=== PATIENT | female | born 1975 | race Caucasian/White ===

== ENCOUNTER 2017-02-22 19:49 | Emergency (ER) | payer OTHER ==
[~2017-02-22] VITALS: Ht 172.7 cm; Wt 70.9 kg
[2017-02-22 20:06] VITALS: BP 141/99
== END 2017-02-22 21:50 | disposition left against medical advice (07) ==
LOC: EME 19:49
DX: R55 Syncope and collapse (principal); Z53.21 Procedure and treatment not carried out due to patient leaving prior to being seen by health care provider
CPT/HCPCS: 71020; 80048; 85027

== ENCOUNTER 2017-03-28 10:35 | Emergency (ER) | payer OTHER ==
[~2017-03-28] VITALS: Ht 172.7 cm; Wt 61.0 kg
[2017-03-28 12:02] LABS: EOSINOPHIL (%) 1.1 % (0-5); EOSINOPHIL COUNT 0.1 K/uL (0-0.3); HEMATOCRIT 39.1 % (36.0-46.0); IMMATURE GRANULOCYTE (%) 0.3 % (0.0-0.7); INSTRUMENT ABS NEUTROPHIL CT 7.5 K/uL; LYMPHOCYTE COUNT 1.9 K/uL (1.0-2.8); MCH 26.9 PG (29.0-34.0); MCHC 31.5 G/DL (30.0-36.0); MCV 85.6 FL (83-99); MEAN PLAT.VOLUME 8.8 uM^3 (9.5-12.4); MONOCYTE (%) 4.3 % (3-12); MONOCYTE COUNT 0.4 K/uL (0-0.8); NEUTROPHIL (%) 75.2 % (45-76); NEUTROPHIL COUNT 7.5 K/uL (1.8-6.4); PLATELET COUNT 362 K/uL (156-360); RBC DIS.WIDTH-CV 15.4 % (11.8-14.6); RBC DIS.WIDTH-SD 48.3 % (39-53); RED BLOOD COUNT 4.57 M/uL (3.80-5.20)
[2017-03-28 12:05] LABS: AMPHETAMINE PRESUMPTIVE POSITIVE (500 ng/mL); BARBITURATES PRESUMPTIVE POSITIVE (200 ng/mL); BENZODIAZEPINES NEGATIVE (150 ng/mL); COCAINE NEGATIVE (150 ng/mL); INTERNAL CONTROLS VALID? YES; METHADONE NEGATIVE (200 ng/mL); METHAMPHETAMINE NEGATIVE (500 ng/mL); OPIATES (MORPHINE) PRESUMPTIVE POSITIVE (100 ng/mL); OXYCODONE NEGATIVE (100 ng/mL); PHENCYCLIDINE NEGATIVE (25 ng/mL); PROPOXYPHENE NEGATIVE (300 ng/mL); THC CANNABINOIDS PRESUMPTIVE POSITIVE (50 ng/mL); TRICYCLIC ANTIDEPRESSANTS PRESUMPTIVE POSITIVE (300 ng/mL)
[2017-03-28 12:06] LABS: ADD MEDTOX COMMENT Y
[2017-03-28 12:10] LABS: CHLORIDE 104 mEq/L (99-109); POTASSIUM 4.3 mEq/L (3.7-5.4); SODIUM 136 mEq/L (136-147)
[2017-03-28 12:12] LABS: GLUCOSE 91 mg/dL (70-99)
[2017-03-28 12:13] LABS: ANION GAP 7 MEQ/L (2-14)
[2017-03-28 12:16] LABS: GFR ESTIMATE (CALCULATED) > 59 mL/min/
[2017-03-28 12:17] LABS: UREA NITROGEN (BUN) 12 mg/dL (9-23)
[2017-03-28 12:24] LABS: QUANTITATIVE HCG < 4.0 MIU/ML
[2017-03-28 12:35] LABS: OPIATES QUANTITATIVE VALUE 0 NG/ML
[2017-03-28 13:31] VITALS: BP 125/97
== END 2017-03-28 13:34 | disposition home or self-care (01) ==
LOC: EME 10:35
PROVIDERS: Emergency Medicine
DX: R56.9 Unspecified convulsions (principal); R41.3 Other amnesia; Z91.81 History of falling; F17.200 Nicotine dependence, unspecified, uncomplicated
CPT/HCPCS: 70450; 80048; 84702; 84999; 85025; 93005; 99281; 99285